=== PATIENT | male | born 1955 ===

== ENCOUNTER 2017-08-30 12:13 | Emergency (ER) | payer OTHER ==
[~2017-08-30] VITALS: Ht 180.3 cm; Wt 82.6 kg
[2017-08-30] MEDS ORDERED: LOSARTAN-HCTZ1 EAC2 PO (12:31)
== END 2017-08-30 13:51 | disposition home or self-care (01) ==
LOC: ER 12:13
DX: S60.222A Contusion of left hand, initial encounter (principal); S60.221A Contusion of right hand, initial encounter; W18.39XA Other fall on same level, initial encounter; Y93.89 Activity, other specified; Y92.69 Other specified industrial and construction area as the place of occurrence of the external cause; Y99.8 Other external cause status; R73.9 Hyperglycemia, unspecified